=== PATIENT | female | born 1970 | race American Indian/Alaskan Native ===

== ENCOUNTER 2022-05-26 22:05 | Emergency (ER) | payer OTHER ==
[~2022-05-26] VITALS: Ht 162.6 cm; Wt 93.0 kg
[2022-05-26 22:15] VITALS: BP 142/86
== END 2022-05-26 23:40 | disposition home or self-care (01) ==
LOC: ER 22:06
DX: S93.692A Other sprain of left foot, initial encounter (principal); S93.691A Other sprain of right foot, initial encounter; X58.XXXA Exposure to other specified factors, initial encounter; Y93.89 Activity, other specified; Y92.89 Other specified places as the place of occurrence of the external cause; Y99.8 Other external cause status
CPT/HCPCS: 29515; 73630; 99283